=== PATIENT | female | born 1965 | race Caucasian/White ===

== ENCOUNTER 2017-09-18 14:19 | Emergency (ER) | payer BC ==
[~2017-09-18] VITALS: Ht 170.2 cm; Wt 70.3 kg
--- NOTE | 2017-09-18 17:11 | ED GI/GU/ABDOMINAL COMPLAINT ---
History of Present Illness General Chief Complaint: Abdominal Pain/Flank Pain Stated Complaint: LEFT SIDED ABD PAIN Source: patient, family, old records Exam Limitations: no limitations Vital Signs & Intake/Output Vital Signs & Intake/Output Vital Signs Date Time Temp Pulse Resp B/P B/P Pulse O2 O2 Flow FiO2 Mean Ox Delivery Rate 09/18 1842 98.4 82 18 113/55 96 Room Air 09/18 1740 98 Room Air 09/18 1428 97.7 107 20 133/80 96 Room Air Allergies Coded Allergies: NO KNOWN ALLERGIES (09/18/17) Reconcile Medications Oxycodone HCl/Acetaminophen (Oxycodone-Acetaminophen 5-325) 5 MG-325 MG TABLET 1 TAB PO TIDPRN KIDNEY STONE Oxycodone HCl/Acetaminophen (Oxycodone-Acetaminophen 5-325) 5 MG-325 MG TABLET 1 TAB PO TIDPRN KIDNEY Triage Note: PT TO ED C/O LEFT RIB PAIN SINCE YESTERDAY. STATES SNEEZED EARLIER AND PAIN IS NOW WORSE. RA SATS 96%. Triage Nurses Notes Reviewed? yes ? N Is pt currently ? No HPI: 52F no significant PMH with acute onset of 10/10 left flank pain radiating to left groin, described as squeezing and spastic, constant since onset about an hour ago. No similar symptoms in the past, no h/o kidney stones, thuogh has a family history. Denies hematuria, dysuria, constipation, diarrhea, chest pain, SOB, fever, chills, n/v. Past History Travel History Traveled to [place] past 21 day No Medical History Any Pertinent Medical History? see below for history Respiratory: asthma Surgical History Surgical History: non-contributory Psychosocial History What is your primary language Liberian Tobacco Use: Current Daily Use Daily Tobacco Use Amount/Type: => 5 Cigarettes daily ETOH Use: denies use Illicit Drug Use: marijuana Family History Hx Contributory? No Review of Systems Review of Systems Constitutional: Reports: no symptoms. EENTM: Reports: no symptoms. Respiratory: Reports: no symptoms. Cardiovascular: Reports: no symptoms. GI: Reports: no symptoms. Genitourinary: Reports: no symptoms. Musculoskeletal: Reports: no symptoms. Skin: Reports: no symptoms. Neurological/Psychological: Reports: no symptoms. Hematologic/Endocrine: Reports: no symptoms. Immunologic/Allergic: Reports: no symptoms. All Other Systems: Reviewed and Negative Physical Exam Physical Exam General Appearance: well developed/nourished, severe distress Head: atraumatic, normal appearance Eyes: Bilateral: normal appearance, normal inspection. Ears, Nose, Throat, Mouth: moist mucous membrane Neck: normal inspection, full range of motion Respiratory: normal breath sounds, chest non-tender, no respiratory distress Cardiovascular: regular rate/rhythm Gastrointestinal: soft, non-tender Back: normal inspection, vertebral tenderness Extremities: normal range of motion, evidence of injury Neurologic/Psych: awake, alert, oriented x 3, normal mood/affect Skin: intact, normal color, warm/dry Core Measures ACS in differential dx? No Sepsis Present: No Sepsis Focused Exam Completed? No Progress Differential Diagnosis: AAA, AMI, appendicitis, biliary colic, bowel obstruction , colon cancer, cholecystitis, diverticulitis, ectopic , endometritis, esophageal varices, gastritis, hepatitis, hernia, hemorrhoids, ischemic bowel, inflamm bowel dis, intrauterine , kidney stone, Rosita-Jessica tear, ovarian cyst, ovarian torsion, pancreatitis, PID/cervicitis, peptic ulcer, PUD/ GERD, perforated viscous, SBO, threatened AB, UTI/pyelo Plan of Care: Orders Procedure Date/time Status URINALYSIS 09/18 1459 Complete COMPREHENSIVE METABOLIC PANEL 09/18 1459 Complete CBC WITHOUT DIFFERENTIAL 09/18 1459 Complete Laboratory Tests 09/18/17 1726: Urine Color RODGER, Urine Clarity HAZY H, Urine pH 6.0, Ur Specific Elida >= 1.030, Urine Protein TRACE H, Urine Ketones TRACE H, Urine Nitrite NEG, Urine Bilirubin NEG@ICTO, Urine Urobilinogen 0.2, Ur Leukocyte Esterase SMALL H, Ur Microscopic SEDIMENT EXAMINED, Urine RBC RARE, Urine WBC 5-10 H, Ur Epithelial Cells MANY H, Urine Bacteria MANY H, Urine Mucus MOD H, Urine Hemoglobin NEG, Urine Glucose NEG 09/18/17 1705: Anion Gap 16, Estimated GFR 58 L, BUN/Creatinine Ratio 14.0, Glucose 94, Calcium 10.4 H, Total Bilirubin 0.5, AST 27, ALT 29, Alkaline Phosphatase 117, Total Protein 8.2, Albumin 4.7, Globulin 3.5, Albumin/Globulin Ratio 1.3, CBC w Diff NO MAN DIFF REQ, RBC 4.95, MCV 96.4, MCH 32.5 H, MCHC 33.7, RDW 12.5, MPV 8.9, Gran % 79.8 H, Lymphocytes % 10.4 L, Monocytes % 6.9, Eosinophils % 2.2, Basophils % 0.7, Absolute Granulocytes 8.7 H, Absolute Lymphocytes 1.1 L, Absolute Monocytes 0.8 H, Absolute Eosinophils 0.2, Absolute Basophils 0.1 Pain resolved following IV fluids, Toradol, and Morphine. No CT evidence of obstructing stone. Will discharge home. Diagnostic Imaging: Viewed by Me: CT Scan. Discussed w/RAD: CT Scan. Radiology Impression: PATIENT: KIMANI MORTON PRESENT AGE: 52 PATIENT ACCOUNT NO: [id number] : 63 LOCATION: [facility] [place] ORDERING PHYSICIAN: Lisa Bowling MD SERVICE DATE: 09/18/17 EXAM TYPE : CAT - CT ABD & PELVIS W/O IV CONTRAS EXAMINATION: CT ABDOMEN AND PELVIS WITHOUT CONTRAST CLINICAL INFORMATION: Right flank pain. COMPARISON: None TECHNIQUE: Multidetector volumetric imaging was performed from the superior aspect of the liver through the pubic symphysis. Sagittal and coronal reformatted images were obtained on the technologist's workstation. DLP: 623 mGy -cm FINDINGS: LUNG BASES: The visualized lung bases are unremarkable. Suspect a small hiatal hernia. LIVER, GALLBLADDER, AND BILIARY TREE: The liver is normal in size, shape, and attenuation. No focal hepatic lesion or biliary ductal dilatation is present. No cholelithiasis or evidence of cholecystitis. Some hyperdense biliary sludge demonstrated. PANCREAS: Unremarkable. SPLEEN: Unremarkable. ADRENAL GLANDS: Unremarkable. KIDNEYS AND URETERS: No hydronephrosis. No right genitourinary calculi demonstrated. There is a punctate nonobstructing calculus in the upper pole of the left kidney. BLADDER: Decompressed. GASTROINTESTINAL TRACT: Bowel gas pattern is nonobstructive. No evidence of acute bowel inflammation. The appendix is unremarkable. ABDOMINAL WALL: No significant hernia is appreciated. LYMPH NODES: No pathologically enlarged lymph nodes. VASCULAR: Unremarkable. PELVIC VISCERA: No free pelvic fluid. No suspicious uterine or adnexal lesion. OSSEOUS STRUCTURES: No acute osseous abnormalities. Sclerotic focus within the left iliac bone is nonspecific and statistically most likely represents a bone island. IMPRESSION: 1. No right renal or ureteral calculi. No hydronephrosis. 2. A tiny punctate nonobstructing calculus in the upper left kidney. 3. No acute intra-abdominal or intrapelvic pathology demonstrated. DICTATED BY: Ricardo Trent MD DATE/TIME DICTATED:1852 POULTRY PATHOLOGIST:EDA DATE/TIME TRANSCRIBED:09/18/171852 Initial ED EKG: none Departure Departure Disposition: HOME OR SELF CARE Condition: Stable Clinical Impression Primary Impression: Nephrolithiasis Referrals: Declan ROSEN,Les Booker (PCP/Family) Additional Instructions: Follow up with your PCP. Drink plenty of water. If you experience fever, chills, painful urination, foul smelling urine, worsening pain, or any new or worsening symptoms, return to emergency department. PErcocet may make you sleepy, so do not drive or operate machinery while taking it. Departure Forms: Customer Survey General Discharge Information Prescriptions: Current Visit Scripts Oxycodone HCl/Acetaminophen (Oxycodone-Acetaminophen 5-325) 1 TAB PO TIDPRN #15 TAB Oxycodone HCl/Acetaminophen (Oxycodone-Acetaminophen 5-325) 1 TAB PO TIDPRN #10 TAB
[2017-09-18 17:18] LABS: ABSOLUTE BASOPHIL COUNT 0.1 /CUMM (0.0-0.2); ABSOLUTE EOSINOPHIL COUNT 0.2 /CUMM (0.0-0.7); ABSOLUTE GRANULOCYTE CT 8.7 /CUMM (1.4-6.5); ABSOLUTE LYMPH COUNT 1.1 /CUMM (1.2-3.4); ABSOLUTE MONOCYTE COUNT 0.8 /CUMM (0.10-0.60); BASOPHIL % 0.7 % (0.0-2.0); EOSINOPHIL % 2.2 % (0-5); GRANULOCYTE % 79.8 % (42.2-75.2); HEMATOCRIT 47.7 % (37-47); MEAN CORPUSCULAR HGB 32.5 PG (27.0-31.0); MEAN CORPUSCULAR HGB CONC 33.7 G/DL (33.0-37.0); MEAN CORPUSCULAR VOLUME 96.4 FL (81.0-99.0); MEAN PLATELET VOLUME 8.9 FL (7.4-10.4); PLATELET COUNT 238 /CUMM (130-400); RBC DISTRIBUTION WIDTH 12.5 % (11.5-14.5); RED BLOOD CELL CT 4.95 /CUMM (4.20-5.40); WHITE BLOOD CELL COUNT 10.9 /CUMM (4.8-10.8)
[2017-09-18 18:42] VITALS: BP 113/55
--- NOTE | 2017-09-18 19:07 | CT SCAN REPORT ---
EXAMINATION: CT ABDOMEN AND PELVIS WITHOUT CONTRAST CLINICAL INFORMATION: Right flank pain. COMPARISON: None TECHNIQUE: Multidetector volumetric imaging was performed from the superior aspect of the liver through the pubic symphysis. Sagittal and coronal reformatted images were obtained on the technologist's workstation. DLP: 623 mGy-cm FINDINGS: LUNG BASES: The visualized lung bases are unremarkable. Suspect a small hiatal hernia. LIVER, GALLBLADDER, AND BILIARY TREE: The liver is normal in size, shape, and attenuation. No focal hepatic lesion or biliary ductal dilatation is present. No cholelithiasis or evidence of cholecystitis. Some hyperdense biliary sludge demonstrated. PANCREAS: Unremarkable. SPLEEN: Unremarkable. ADRENAL GLANDS: Unremarkable. KIDNEYS AND URETERS: No hydronephrosis. No right genitourinary calculi demonstrated. There is a punctate nonobstructing calculus in the upper pole of the left kidney. BLADDER: Decompressed. GASTROINTESTINAL TRACT: Bowel gas pattern is nonobstructive. No evidence of acute bowel inflammation. The appendix is unremarkable. ABDOMINAL WALL: No significant hernia is appreciated. LYMPH NODES: No pathologically enlarged lymph nodes. VASCULAR: Unremarkable. PELVIC VISCERA: No free pelvic fluid. No suspicious uterine or adnexal lesion. OSSEOUS STRUCTURES: No acute osseous abnormalities. Sclerotic focus within the left iliac bone is nonspecific and statistically most likely represents a bone island. IMPRESSION: 1. No right renal or ureteral calculi. No hydronephrosis. 2. A tiny punctate nonobstructing calculus in the upper left kidney. 3. No acute intra-abdominal or intrapelvic pathology demonstrated.
[2017-09-18] MEDS ORDERED: OXYCODONE-ACET1 EACH PO ×2 (19:29→21:11)
== END 2017-09-18 19:38 ==
LOC: ERH 14:19
PROVIDERS: Physician Assistant Medical
DX: N20.0 Calculus of kidney (principal)
CPT/HCPCS: 74176; 81001; 96361; 96374; 96375; J1885